=== PATIENT | male | born 1960 | race Caucasian/White ===

== ENCOUNTER 2017-11-18 14:58 | Inpatient (IN) | payer BC, OTHER ==
[~2017-11-18] VITALS: Ht 175.3 cm; Wt 65.8 kg
--- NOTE | 2017-11-18 | NUR ---
Start of Shift Pt is a 57 y/o male admitted today, 11/18/17 for medically managed withdrawal/detox from ETOH with hx of withdrawal related Seizure approximately 5 months ago. Pt found laying in bed, cooperative but looks sad/unhappy and withdrawn. Speaks with low soft voice confirming history, needs at moment. Labs reviewed, MG 1.5, 800mg Mag-Ox PO to be included with evening meds, as well as first dose Ativan 2mg PO taper. Will continue to monitor and promptly attend to all pt needs Addendum: 11/19/17 at 0644 by JOHNNY BLANTON RN incorrect time, correct time is 1929.
[2017-11-18] MEDS ORDERED: MAG HYDROX/AL HYDROX/SIMETH 30 ML LIQUID UDC PO PRN (16:45)
[2017-11-18] MEDS ORDERED: ACETAMINOPHEN 325 MG TABLET PO PRN (16:45)
[2017-11-18] MEDS ORDERED: ONDANSETRON 4 MG/2 ML VIAL IM PRN (16:45)
[2017-11-18] MEDS ORDERED: MAGNESIUM HYDROXIDE 30 ML LIQUID UDC PO PRN (16:45)
[2017-11-18] MEDS ORDERED: hydrALAZINE HCL 50 MG TABLET PO PRN (16:45)
[2017-11-18] MEDS ORDERED: LORAZEPAM 2 MG/1 ML VIAL IM PRN (16:45)
[2017-11-18] MEDS ORDERED: LOPERAMIDE HCL 2 MG CAPSULE PO PRN ×2 (16:45)
[2017-11-18] MEDS ORDERED: LORAZEPAM 1 MG TABLET PO PRN ×2 (16:45)
[2017-11-18] MEDS ORDERED: ONDANSETRON ODT 4 MG TAB.RAPDIS SL PRN (16:45)
[2017-11-18] MEDS ORDERED: DICYCLOMINE HCL 20 MG TABLET PO PRN (16:45)
[2017-11-18] MEDS ORDERED: IBUPROFEN 400 MG TABLET PO PRN (16:45)
[2017-11-18] MEDS ORDERED: MIRALAX 17 GM POWD.PACK PO PRN (16:45)
[2017-11-18 16:57] VITALS: BP 146/109
--- NOTE | 2017-11-18 17:05 | NUR ---
PRE ADMISSION 57 year old male presented at intake office, patients bp: 146/109 hr: 94 t: 98.2 r: 18 o2 sat: 99%. patient denies any allergies to food or medications. patient reports he is coming from [place] where he resides. patient reports he is here to detox off of alcohol. per patient he was sober for 4 years, but when his mother he began drinking on a daily basis. patient reports he will drink 3-4 glasses of vodka mixed with cranberry juice approximately 8oz every day. patient reports he has been doing so for one year. patient reports 5 months ago he had an episode of seizure due to alcohol withdrawal. patient brought home medications, but reports he last took them in beginning of october. patient reports past medical history of: HTN. patient was seen and ermined by dr. zazueta at intake office.
[2017-11-18] MEDS ORDERED: ASPI81TA31 PO (17:11)
[2017-11-18] MEDS ORDERED: LEVE500T9 PO (17:11)
[2017-11-18] MEDS ORDERED: HYDR12.5 PO (17:11)
[2017-11-18] MEDS ORDERED: LISI-603 PO (17:11)
[2017-11-18] MEDS ORDERED: AMLO10TA2 PO (17:11)
--- NOTE | 2017-11-18 17:15 | NUR ---
ADMISSION Patient arrived to unit at 1715, patients body search completed by male intake staff, no contraband was found. body assessment completed, patients skin is intact, no bruising, breakdown or discoloration was noted. patient is 5 feet 9 inches and weights 145 lbs. patient was oriented to unit and to room, education personal injury paralegal light use was provided. seizure precautions all in place. patient reports NKA. patient reports he is here to detox off of: 1. etoh, began drinking alcohol at the age of 89 years old, for the past year, he reports drinking every day 8 oz of vodka, last drink was 11/18/2017 at 0000 consumed 8 oz of vodka. reports treatment history of:[facility] for 30 days, 5 years ago, reports he was sober for 4 years, and relapsed after the of his mother, patient reports he has been struggling with his sobriety, reports he tried to quit on his own and he had a seizure. patient reports he is motivated to regain sobriety in his life, reports he wants his life back. patient brought home medications with him, but reports he last took them beginning of october, reports he stopped taking them because he would feel dizzy. patient reports his primary care physician is: Dr. Hernandez in [place]. patient reports his mothers side of the family there is " a lot of alcoholics" patient is cooperative, noted tremulous and reports anxiety, and feeling agitated patients admitting ciwa score of: 8. patient respirations are even and unlabored, No SOB, lungs clear upon ausculation. patients pupils are equal and reactive to light, 3mm. patients abdomen is soft and non distended, bowel sounds heard in all quadrants. patient also reported that in the past he had hepatitis c. patients safety measures are in place. call light with in reach, fall and seizure precautions observed and in place. will continue to monitor closely. safety measures in place. Will endorse patient to oncoming nurse, all pertinent information will be discussed. Addendum: 11/18/17 at 1850 by ORQUIDEA KENDALL LVN [employer]DS POSITIVE FOR COCAINE Per patient he uses cocaine intemittently per patient he used one week ago, but its not something he uses frequently or often per patient " once every few months"
[2017-11-18 17:46] LABS: BASOPHILS # (AUTO) 0.1 K/uL (0.0-8.0); BASOPHILS % (AUTO) 1.4 % (0.0-2.0); EOSINOPHILS % (AUTO) 0.9 % (0.0-7.0); HEMATOCRIT 40.2 % (36.7-47.1); HEMOGLOBIN 12.9 g/dL (12.5-16.3); LYMPHOCYTES # (AUTO) 1.5 K/uL (20.0-40.0); LYMPHOCYTES % (AUTO) 28.5 % (20.5-51.5); MEAN CORPUSCULAR HGB CONC 32 g/dL (32.5-36.3); MEAN CORPUSCULAR VOLUME 84.1 fL (73.0-96.2); MONOCYTES # (AUTO) 0.5 K/uL (2.0-10.0); MONOCYTES % (AUTO) 9.4 % (0.0-11.0); NEUTROPHILS # (AUTO) 3.1 K/uL (1.8-8.9); NEUTROPHILS % (AUTO) 59.8 % (38.5-71.5); PLATELET COUNT (AUTO) 274 K/uL (152-348); RED BLOOD CELL COUNT(AUTO) 4.78 MIL/uL (4.06-5.63); WHITE BLOOD COUNT (AUTO) 5.2 K/uL (3.6-10.2)
[2017-11-18 17:55] LABS: BILIRUBIN,TOTAL 1.5 mg/dL (0.2-1.0); MAGNESIUM 1.5 mg/dL (1.8-2.4); POTASSIUM 3.6 mmol/L (3.5-5.1); TOTAL PROTEIN, SERUM 9.1 g/dL (6.4-8.2)
[2017-11-18 17:57] LABS: *AMPHETAMINE, URINE NEGATIVE (NEGATIVE); *BARBITURATE, URINE NEGATIVE (NEGATIVE); *CANNABINOID, URINE NEGATIVE (NEGATIVE); *COCCAINE, URINE POSITIVE (NEGATIVE); *OPIATE, URINE NEGATIVE (NEGATIVE); *PHENCYCLIDINE SCREEN,URINE NEGATIVE (NEGATIVE)
[2017-11-18] MEDS: THIAMINE HCL 100 MG TABLET PO SCH (18:02)
--- NOTE | 2017-11-18 19:30 | NUR ---
Start of Shift Pt is a 57 y/o male admitted today, 11/18/17 for medically managed withdrawal/detox from ETOH with hx of withdrawal related Seizure approximately 5 months ago. Pt found laying in bed, cooperative but looks sad/unhappy and withdrawn. Speaks with low soft voice confirming history, needs at moment. Labs reviewed, MG 1.5, 800mg Mag-Ox PO to be included with evening meds, as well as first dose Ativan 2mg PO taper. Will continue to monitor and promptly attend to all pt needs
[2017-11-18 20:00] VITALS: BP 157/111
[2017-11-18] MEDS ORDERED: LORAZEPAM 1 MG TABLET PO SCH (21:00)
[2017-11-18] MEDS ORDERED: MAGNESIUM OXIDE 400 MG TABLET PO ONE (21:00)
[2017-11-18] MEDS: AMLODIPINE 10 MG PO SCH (21:27)
[2017-11-18] MEDS: LEVETIRACETAM 500 MG PO SCH (21:27)
[2017-11-19] VITALS: BP 132/92
[2017-11-19 04:00] VITALS: BP 131/98
--- NOTE | 2017-11-19 06:53 | NUR ---
End of Shift Pt is a 57 y/o male admitted 11/18/17 for medically managed withdrawal/detox from ETOH with hx of withdrawal related Seizure approximately 5 months ago. Ativan Taper initiated with 2100 meds with CIWA of 9. VSs and CIWA performed midnight and 0400, CIWA 6, Ativan 1mg PO given given for withdrawal S/Ss . Will continue to monitor and promptly attend to all pt needs.
--- NOTE | 2017-11-19 07:46 | NUR ---
BEGINNING OF SHIFT Patient endorsement report received from plate furnace operator nurse, all pertinent information discussed. Patient is a 57 year old male with admitting Dx: etoh withdrawal. Patient continues under very close observation, Patient has PRN medication available for s/sx of withdrawal. Received PRN: Ativan 1mg PO during plate furnace operator, for s/sx of withdrawal, per plate furnace operator medication effective. slept for 8 hours. Fall and seizure precautions observed at all times. Patient received in bed with eyes closed, respirations are even and unlabored. will educated regarding plan of care for the day, and medication regimen. fall and seizure precautions observed and in place. will continue to monitor closely. safety measures in place.
[2017-11-19 08:45] VITALS: BP 121/91
[2017-11-19] MEDS: MULTIVITAMINS,THERAPEUTIC TABLET PO SCH (08:49)
[2017-11-19] MEDS: LORAZEPAM 1 MG TABLET PO SCH ×3 (08:49→21:31)
[2017-11-19] MEDS: THIAMINE HCL 100 MG TABLET PO SCH (08:49)
[2017-11-19] MEDS: FOLIC ACID 1 MG TABLET PO SCH (08:49)
[2017-11-19] MEDS: LISINOPRIL 20 MG PO SCH (08:53)
[2017-11-19] MEDS: ASPIRIN 81 MG PO SCH (08:53)
[2017-11-19] MEDS ORDERED: INFLUENZA VACCINE 2017-2018 0.5 ML DISP.SYRIN IM ONE (09:00)
[2017-11-19] MEDS ORDERED: PNEUMOCOCCAL 23-VAL P-SAC VAC 0.5 ML VIAL IM ONE (09:00)
[2017-11-19] MEDS ORDERED: HYDROCHLOROTHIAZIDE 25 MG PO SCH (09:00)
[2017-11-19] MEDS ORDERED: TUBERCULIN,PURIF.PROT.DERIV. 5 TU/0.1 ML TEST ID ONE (09:00)
[2017-11-19] MEDS: LEVETIRACETAM 500 MG PO SCH ×2 (09:07→21:31)
[2017-11-19 13:40] VITALS: BP 96/74
[2017-11-19 17:02] VITALS: BP 106/81
--- NOTE | 2017-11-19 19:07 | NUR ---
END OF SHIFT Patient alert and oriented x4, monitored closely during shift. Patient has a worried, and anxious facial expression. Patient at times with increase anxiety, provided with calming reassurance as needed along with non pharmacological interventions. Patient presented with: nausea, tremors, sweats, anxiety, and agitation, initial ciwa score of: 9, last ciwa score of: 8. detox medication effective at reducing s/sx of withdrawal. Patient was administered no PRN medications during shift, during shift patient received pneumonia vaccine on left deltoid and influenza vaccine on right deltoid, well tolerated. Patient consented to procedure prior to administration, education provided with good verbal understanding. Patient was encouraged adequate PO fluid intake as tolerated. Patient encouraged to participate in therapy sessions, patient denies any SI/HI, patient isolative, preferred to stay in room despite much encouragement. Patient was encouraged to verbalize feelings, encouraged to develop coping skills and utilization of non pharmacological interventions. Patients safety measures are in place. call light kept with in reach, will continue to monitor. Endorsed to maintenance technician 3rd shift nurse, all pertinent information discussed.
--- NOTE | 2017-11-19 19:15 | NUR ---
Start of Shift Note: Received patient from day shift nurse.Patient is a 57 y.o male admitted on 11/18/17 for medically supervised withdrawal from ETOH. Patient is alert & oriented x4. Patient received asleep in bed and easily arousable. Patient presented with a flat affect, appears flushed, has moist/clammy skin, reports of anxiety & agitation and complains of itching. Patient is on Ativan taper and tolerating well. No adverse reactions anoted. Last CIWA is 8. Patient did not attend groups today and has been in his room most of the time. Encourage pt to increase fluid intake. Educated patient on current plan of care and verbalized understanding. Patient is stable at this time. Vitals noted WNL. Will continue to monitor patient.
[2017-11-19 20:00] VITALS: BP 104/82
[2017-11-19] MEDS: AMLODIPINE 10 MG PO SCH (21:32)
[2017-11-20] VITALS: BP 128/76
[2017-11-20 06:07] LABS: HEPATITIS B SURFACE AG Negative (Negative)
--- NOTE | 2017-11-20 07:19 | NUR ---
End of Shift Note: Patient had an uneventful night. Pt continues with his Ativan taper and tolerating well. Pt presented with anxiety, agitation, fine tremors & sweating during my shift. Last CIWA is 10. No PRN medications received during my shift. Pt is noted to be isolative and stayed in his room throughout my shift. Encourage pt to attend group activities to learn new coping skills to prevent relapse. Vitals monitored closely. Continue to closely monitor s/s of withdrawals. Pt remained compliant with medications and treatment. Pt stable at this time. Encourage pt to increase fluid intake. Fluid intake: 1100 ml, Voided 1x with no bowel movement. Pt slept for a total of 10 hours. All needs attended & met. Safety measures in place. Will endorse pt to day shift nurse.
--- NOTE | 2017-11-20 07:27 | NUR ---
BEGINNING OF SHIFT Patient endorsement report received from shift manager nurse, all pertinent information discussed. Patient is a 57 year old male with admitting Dx: etoh withdrawal. Patient continues under very close observation, patient continues on ativan taper as ordered. Received no PRNs during shift manager. slept for 10 hours. Fall and seizure precautions observed at all times. Patient received in bed with eyes closed, respirations are even and unlabored. will educated regarding plan of care for the day, and medication regimen. fall and seizure precautions observed and in place. will continue to monitor closely. safety measures in place.
[2017-11-20 08:26] VITALS: BP 118/88
[2017-11-20] MEDS: THIAMINE HCL 100 MG TABLET PO SCH (08:37)
[2017-11-20] MEDS: MULTIVITAMINS,THERAPEUTIC TABLET PO SCH (08:37)
[2017-11-20] MEDS: ASPIRIN 81 MG PO SCH (08:37)
[2017-11-20] MEDS: LEVETIRACETAM 500 MG PO SCH ×2 (08:37→20:48)
[2017-11-20] MEDS: LORAZEPAM 1 MG TABLET PO SCH ×3 (08:37→20:47)
[2017-11-20] MEDS: FOLIC ACID 1 MG TABLET PO SCH (08:37)
[2017-11-20] MEDS: LISINOPRIL 20 MG PO SCH (08:37)
[2017-11-20 12:59] VITALS: BP 111/85
[2017-11-20 17:18] VITALS: BP 99/75
--- NOTE | 2017-11-20 19:03 | NUR ---
END OF SHIFT Patient alert and oriented x4, monitored closely during shift. Patient has a worried, and anxious facial expression. Patient at times with increase anxiety, provided with calming reassurance as needed along with non pharmacological interventions. Patient presented with: tremors, anxiety, sweats, and agitation, initial ciwa score of: 8 and last ciwa score of: 7. detox medication effective at reducing s/sx of withdrawal. Patient was administered no PRN medications during shift. Patient was encouraged adequate PO fluid intake as tolerated. Patient encouraged to participate in therapy sessions, patient denies any SI/HI, patient isolative, preferred to stay in room despite much encouragement. Patient was encouraged to verbalize feelings, encouraged to develop coping skills and utilization of non pharmacological interventions. Patients safety measures are in place. call light kept with in reach, will continue to monitor. Endorsed to construction recruiter nurse, all pertinent information discussed.
--- NOTE | 2017-11-20 19:15 | NUR ---
Start of Shift Note: Received patient from day shift nurse. Patient is a 57 y.o male admitted on 11/18/17 for medically supervised withdrawal from ETOH. Patient is alert & oriented x4. Patient presented with a flat affect, has moist/clammy skin & reports of anxiety & agitation. Patient continues on Ativan taper and tolerating well. No adverse reactions noted. Last CIWA is 7. Patient attended groups during the day. Encourage pt to increase fluid intake. Educated patient on current plan of care and verbalized understanding. Patient is stable at this time. Vitals noted WNL. Will continue to monitor patient.
[2017-11-20 20:00] VITALS: BP 101/79
[2017-11-20] MEDS: AMLODIPINE 10 MG PO SCH (20:47)
--- NOTE | 2017-11-21 07:02 | NUR ---
End of Shift Note: Patient had an uneventful night. Pt is noted to be isolative and stayed in his room throughout my shift. Pt continues with his Ativan taper and tolerating well. Last CIWA is 7. No PRN medications received during my shift. Continue to encourage pt to increase activity and to attend groups to learn new coping skills to prevent relapse. Vitals monitored closely. Continue to closely monitor s/s of withdrawals. Pt remained compliant with medications and treatment. Pt stable at this time. Encourage pt to increase fluid intake. Fluid intake: 1091 ml, Voided 1x with no bowel movement. Pt slept for a total of 10 hours. All needs attended & met. Safety measures in place. Will endorse pt to day shift nurse.
--- NOTE | 2017-11-21 07:30 | NUR ---
start of shift note: received pt from ear mold laboratory technician nurse, pt's last documented ciwa 7, pt is admitted to [facility] for ETOH withdrawal/dependence. will monitor pt for any changes and continue to meet pt's needs. at this time pt is sleeping and in stable condition
[2017-11-21] MEDS: ASPIRIN 81 MG PO SCH (08:54)
[2017-11-21] MEDS: MULTIVITAMINS,THERAPEUTIC TABLET PO SCH (08:54)
[2017-11-21] MEDS: LEVETIRACETAM 500 MG PO SCH ×2 (08:54→21:33)
[2017-11-21] MEDS: FOLIC ACID 1 MG TABLET PO SCH (08:54)
[2017-11-21] MEDS: LISINOPRIL 20 MG PO SCH (08:54)
[2017-11-21] MEDS: LORAZEPAM 1 MG TABLET PO SCH ×2 (08:54→21:32)
[2017-11-21] MEDS: THIAMINE HCL 100 MG TABLET PO SCH (08:54)
[2017-11-21 09:30] VITALS: BP 104/75
[2017-11-21 09:43] VITALS: BP 104/75
[2017-11-21] MEDS ORDERED: DIPH50CA37 PO (12:10)
[2017-11-21 12:33] VITALS: BP 118/92
[2017-11-21 17:49] VITALS: BP 118/69
--- NOTE | 2017-11-21 19:02 | NUR ---
end of shift note: pt is in stable condition at this time, pt is admitted to [facility] for ETOH withdrawal/dependence. pt's last ciwa is 5. pt's TB skin test was read and resulted negative. pt was awake and alert throughout the shift. pt is tolerating ativan taper without A/R. will endorse pt to night shift supervisor nurse
--- NOTE | 2017-11-21 19:30 | NUR ---
Start of Shift Pt is a 57 y/o male admitted 11/18/17 for medically managed withdrawal/detox from ETOH. Pt found resting in bed watching tv. Able to answer questions and respond appropriately. Hand still tremulous, moisture to touch on forehead. Pt discussing rehab to which he is to be d/c'd to 11/23. Evening meds reviewed, Benedryl requested for insomnia. Will continue to monitor patient, promptly attending to all needs.
[2017-11-21 20:00] VITALS: BP 108/76
[2017-11-21] MEDS: diphenhydrAMINE 50 MG CAPSULE PO PRN (21:32)
--- NOTE | 2017-11-21 21:32 | NUR ---
PRN Med Benedryl 50mg PO given for insomnia. Will continue to monitor, reassessing pt in 1 hour, and promptly attending to all pt needs
[2017-11-21] MEDS: AMLODIPINE 10 MG PO SCH (21:33)
--- NOTE | 2017-11-21 22:32 | NUR ---
PRN Med Reassessment Benedryl 50mg PO given for insomnia. At present pt sleeping, RR 14 even and non-labored. Will continue to monitor and promptly attend to all pt needs
--- NOTE | 2017-11-22 | NUR ---
VS's CIWA Deferred VS's CIWA deferred r/t pt sleeping/refused. RR 14 even and non-labored. Will continue to monitor patient, promptly attending to all needs
--- NOTE | 2017-11-22 04:00 | NUR ---
VS's CIWA Deferred 0400 VS's CIWA deferred r/t pt sleeping/refused. RR 14 even and non-labored. Will continue to monitor patient, promptly attending to all needs
--- NOTE | 2017-11-22 06:53 | NUR ---
End of Shift Pt is a 57 y/o male admitted 11/18/17 for medically managed withdrawal/detox from ETOH. Pt given Trazadone 50mg PO QHS PRN and Benedryl 50mg PO QHS PRN for insomnia with 2100 meds. Pt slept for 8 hours during night with 500 intake and 2 voids, 1 BM's. Will continue to monitor patient, promptly attending to all needs.
--- NOTE | 2017-11-22 07:30 | NUR ---
start of shift note: pt is in stable condition at this time no s/s of pain or discomfort. pt is admitted to [facility] for ETOH withdrawal/dependence. pts last noted ciwa is 6. pt is on an ativan taper and tolerating taper well with no adverse reactions, will encourage pt to join activities and groups.
[2017-11-22 09:00] VITALS: BP 119/89
[2017-11-22] MEDS ORDERED: LORAZEPAM 1 MG TABLET PO SCH (09:00)
[2017-11-22] MEDS: THIAMINE HCL 100 MG TABLET PO SCH (09:13)
[2017-11-22] MEDS: FOLIC ACID 1 MG TABLET PO SCH (09:13)
[2017-11-22] MEDS: MULTIVITAMINS,THERAPEUTIC TABLET PO SCH (09:13)
[2017-11-22] MEDS: ASPIRIN 81 MG PO SCH (09:14)
[2017-11-22] MEDS: LISINOPRIL 20 MG PO SCH (09:14)
[2017-11-22] MEDS: LEVETIRACETAM 500 MG PO SCH ×2 (09:14→20:59)
[2017-11-22 12:56] VITALS: BP 108/78
[2017-11-22 17:38] VITALS: BP 101/79
--- NOTE | 2017-11-22 19:06 | NUR ---
end of shift note: pt is in stable condition, pt competed ativan taper without A/R. pt is medically detoxing from ETOH. pt is set to discharge tomorrow. last noted ciwa is 4. will endorse pt to scene shifter nurse
[2017-11-22 20:00] VITALS: BP 110/86
--- NOTE | 2017-11-22 20:00 | NUR ---
START OF SHIFT NOTE RECEIVED REPORT FROM DAY SHIFT NURSE. PATIENT IS A 57 YEAR OLD MALE ADMITTED FOR ETOH WITHDRAWAL. PATIENT COMPLETED ATIVAN TAPER, TOLERATED WELL AND NO ADVERSE REACTION. PATIENT DID NOT REQUIRE PRN MEDICATION. PATIENT IS MEDICALLY CLEARED TO BE DISCHARGE TOMORROW. LAST CIWA 4. RECEIVED PATIENT IN THE ROOM, WATCHING TX. PATIENT STATES HES ANXIOUS AND SWEATING ON/OFF. PATIENT STATES HE ATTENDED GROUPS. SAFETY MEASURES IN PLACE. CALL LIGHT IN REACH. WILL CONTINUE TO MONITOR.
[2017-11-22] MEDS: diphenhydrAMINE 50 MG CAPSULE PO PRN (20:59)
--- NOTE | 2017-11-22 20:59 | NUR ---
PRN BENADRYL ADMINISTRATION PATIENT REQUESTS FOR SLEEP AID. WILL MONITOR FOR EFFECTIVENESS
[2017-11-22] MEDS: AMLODIPINE 10 MG PO SCH (21:00)
--- NOTE | 2017-11-22 22:30 | NUR ---
PRN DARINADRYL RE-ASSESSMENT PATIENT SLEEPING. RESPIRATION EVEN AND UNLABORED. SAFETY MEASURES IN PLACE. CALL LIGHT IN REACH. WILL CONTINUE TO MONITOR.
--- NOTE | 2017-11-23 | NUR ---
CIWA DEFERRED PATIENT IN BED WITH EYES CLOSED. RESPIRATION EVEN AND UNLABORED. VS REFUSED. WILL CONTINUE TO MONITOR.
--- NOTE | 2017-11-23 04:00 | NUR ---
CIWA DEFERRED PATIENT IN BED WITH EYES CLOSED. RESPIRATION EVEN AND UNLABORED. VS REFUSED. WILL CONTINUE TO MONITOR.
--- NOTE | 2017-11-23 07:10 | NUR ---
END OF SHIFT NOTE PATIENT SLEPT 7 HOURS. FLUID INTAKE 1,300 ML. VOIDED X 3. NO BM. PATIENT COMPLETED ATIVAN TAPER, TOLERATED WELL AND NO ADVERSE REACTION. PATIENT IS DISCHARGING TODAY. PATIENT COMPLIANT WITH MEDICATION AND TREATMENT PLAN. PATIENT STATES WAS ANXIOUS AND SWEATING ON/OFF BEGINNING OF SHIFT. PATIENT REQUESTED SLEEP AID. PRN BENADRYL GIVEN. LAST CIWA 4. SAFETY MEASURES IN PLACE. CALL LIGHT IN REACH. WILL CONTINUE TO MONITOR.
--- NOTE | 2017-11-23 07:49 | NUR ---
START OF SHIFT Rcvd endorse from ongoing nurse, client is lying in bed, he presents with anxious mood. He reports feeling anxious because he is being discharge today to [facility]. Discuss discharge instructions with client, he verbalized understanding. Client denies any suicidal/homicidal ideations. He denies any N/V/D. Client completed 4 day Ativan taper. last CIWA 4. Client had an uneventful night, he slept 7 hrs. Call light within reach.
[2017-11-23 08:01] VITALS: BP 117/86
[2017-11-23] MEDS: FOLIC ACID 1 MG TABLET PO SCH (08:36)
[2017-11-23] MEDS: MULTIVITAMINS,THERAPEUTIC TABLET PO SCH (08:36)
[2017-11-23] MEDS: THIAMINE HCL 100 MG TABLET PO SCH (08:36)
[2017-11-23] MEDS: ASPIRIN 81 MG PO SCH (08:39)
[2017-11-23] MEDS: LEVETIRACETAM 500 MG PO SCH (08:39)
[2017-11-23] MEDS: LISINOPRIL 20 MG PO SCH (08:39)
--- NOTE | 2017-11-23 09:35 | NUR ---
DISCHARGE Client discharged in stable condition with all valuable, belongings and home medications. Client denies SI/HI. To [facility] via [facility].
== END 2017-11-23 09:35 | disposition other institution (70) | DRG 895 ==
LOC: SRC 15:52
PROVIDERS: ADMIT Internal Medicine; ATTEND Internal Medicine
PROC: HZ2ZZZZ Detoxification Services for Substance Abuse Treatment (ICD-10-PCS; principal; 2017-11-18)
PROC: HZ41ZZZ Group Counseling for Substance Abuse Treatment, Behavioral (ICD-10-PCS; 2017-11-20)
DX: F10.230 Alcohol dependence with withdrawal, uncomplicated (principal); G40.919 Epilepsy, unspecified, intractable, without status epilepticus; K70.10 Alcoholic hepatitis without ascites; E83.42 Hypomagnesemia; Y90.0 Blood alcohol level of less than 20 mg/100 ml; Z81.1 Family history of alcohol abuse and dependence; I10 Essential (primary) hypertension
CPT/HCPCS: 36415; 70030-TC; 80307; 80353; 83735; 85025; 86580; 86592; 86705; 86803; 87340; 87806; 90686; 90732; G0480; Q0163